=== PATIENT | female | born 1980 | race Caucasian/White ===

== ENCOUNTER 2017-01-02 13:28 | Inpatient (IN) | payer OTHER ==
[~2017-01-02] VITALS: Ht 157.5 cm; Wt 96.8 kg
[~2017-01-02 13:28] MED LIST: CEFAZOLIN 1,000 MG ONE; DEXAMETHASONE 4 MG/ML, 1ML ONE; KETOROLAC 30 MG/1 ML ONE; METOCLOPRAMIDE 5 MG/ML, 2ML ONE; ONDANSETRON 2MG/ML, 2ML ONE; OXYTOCIN 10 UNITS/ML, 1ML ONE
[2017-01-02] MEDS ORDERED: OXYTOCIN 30U/ 0.9% NaCL 500ML 500 ML IV SCH (13:31)
[2017-01-02] MEDS ORDERED: SODIUM CITRATE/CITRIC ACID 30 ML UDC PO ONE (14:00)
[2017-01-02] MEDS: PLEASE ENTER HEIGHT AND WEIGHT MC SCH ×2 (14:00→22:00)
[2017-01-02] MEDS ORDERED: METOCLOPRAMIDE 5 MG/ML, 2ML IV ONE (14:00)
[2017-01-02] MEDS: PLEASE ENTER ALLERGIES MC SCH ×4 (14:00→22:00)
[2017-01-02] MEDS ORDERED: LACTATED RINGERS 1,000 ML IVBOLUS ONE (14:00)
[2017-01-02 14:08] LABS: BLOOD UREA NITROGEN 8 mg/dL (7-18)
[2017-01-02] MEDS ORDERED: SODIUM CITRATE/CITRIC ACID 30 ML UDC ONE (14:09)
[2017-01-02] MEDS ORDERED: METOCLOPRAMIDE 5 MG/ML, 2ML ONE (14:10)
[2017-01-02] MEDS ORDERED: OXYTOCIN 30U/ 0.9% NaCL 500ML 500 ML ONE (14:10)
[2017-01-02 14:11] LABS: ASPARTATE AMINO TRANSFERASE 18 U/L (15-37)
[2017-01-02] MEDS: LACTATED RINGERS 1,000 ML IV SCH ×6 (14:18→22:00)
[2017-01-02] MEDS ORDERED: OXYcodone 5 MG/5 ML ORAL.SOL UDC PO PRN (16:00)
[2017-01-02] MEDS ORDERED: ONDANSETRON 2MG/ML, 2ML IVPush PRN (16:00)
[2017-01-02] MEDS ORDERED: ALBUTEROL SULFATE 2.5 MG/3 ML NPPB PRN (16:00)
[2017-01-02] MEDS ORDERED: MEPERIDINE/PF 25MG/0.5ML IVPush PRN (16:00)
[2017-01-02] MEDS ORDERED: HYDROcodone/APAP 7.5-325MG/15ML UDC PO PRN (16:00)
[2017-01-02] MEDS ORDERED: hydrALAzine 20 MG/ML, 1ML IV PRN (16:00)
[2017-01-02] MEDS ORDERED: PROMETHAZINE 25 MG/ML, 1ML IV PRN (16:00)
[2017-01-02] MEDS ORDERED: EPHEDRINE 50 MG/ML, 1ML IVPush PRN (16:00)
[2017-01-02] MEDS ORDERED: FENTANYL PF 100 MCG/2ML IV PRN (16:00)
[2017-01-02] MEDS ORDERED: HYDROmorphone 1 MG/ML, 1ML IV PRN (16:00)
[2017-01-02] MEDS ORDERED: LABETALOL 5MG/ML, 20ML IV PRN (16:00)
[2017-01-02] MEDS ORDERED: FENTANYL PF 100 MCG/2ML ONE (16:25)
[2017-01-02] MEDS: OXYTOCIN 30U/ 0.9% NaCL 500ML 500 ML IV SCH (18:24)
[2017-01-02] MEDS: IBUPROFEN 600 MG TABLET PO SCH (18:30)
[2017-01-02] MEDS ORDERED: morphine SULFATE 10 MG/ML, 1ML IVPush PRN ×2 (18:30)
[2017-01-02] MEDS ORDERED: OXYcodone IR 5MG TABLET PO PRN (18:30)
[2017-01-02] MEDS ORDERED: BISACODYL 10 MG SUPP PR PRN (18:30)
[2017-01-02] MEDS ORDERED: SIMETHICONE 80 MG CHEW TAB PO PRN (18:30)
[2017-01-02] MEDS: ACETAMINOPHEN 325 MG TABLET PO SCH (18:30)
[2017-01-02] MEDS ORDERED: ONDANSETRON 2MG/ML, 2ML IV PRN (18:30)
[2017-01-02] MEDS ORDERED: CALCIUM CARBONATE 500 MG TAB.CHEW PO PRN (18:30)
[2017-01-02] MEDS ORDERED: MISOPROSTOL 200 MCG TABLET PR PRN (18:30)
[2017-01-02 20:40] VITALS: BP 150/88
[2017-01-03] MEDS: KETOROLAC 30 MG/1 ML IV SCH ×4 (00:08→12:30)
[2017-01-03] MEDS: OXYcodone IR 5MG TABLET PO PRN ×4 (00:08→13:12)
[2017-01-03 00:10] VITALS: BP 132/81
[2017-01-03] MEDS: ACETAMINOPHEN 325 MG TABLET PO SCH ×4 (00:30→19:43)
[2017-01-03] MEDS: IBUPROFEN 600 MG TABLET PO SCH ×4 (00:30→19:43)
[2017-01-03] MEDS: LACTATED RINGERS 1,000 ML IV SCH ×4 (02:24→14:24)
[2017-01-03 04:00] VITALS: BP 117/76
[2017-01-03] MEDS: OXYTOCIN 30U/ 0.9% NaCL 500ML 500 ML IV SCH ×2 (04:24→14:24)
[2017-01-03 08:15] VITALS: BP 102/68
[2017-01-03] MEDS: DOCUSATE 100 MG CAPSULE PO PRN (09:17)
[2017-01-03] MEDS: PRENATAL VIT/IRON/FA 1 EACH TABLET PO SCH (09:17)
[2017-01-03 20:05] VITALS: BP 101/63
[2017-01-04] MEDS: IBUPROFEN 600 MG TABLET PO SCH ×3 (01:24→14:01)
[2017-01-04] MEDS: ACETAMINOPHEN 325 MG TABLET PO SCH ×4 (01:24→19:30)
[2017-01-04] MEDS: DOCUSATE 100 MG CAPSULE PO PRN ×2 (07:33→19:48)
[2017-01-04] MEDS: PRENATAL VIT/IRON/FA 1 EACH TABLET PO SCH (07:33)
[2017-01-04 10:00] VITALS: BP 128/80
[2017-01-04] MEDS: OXYcodone IR 5MG TABLET PO PRN (19:48)
[2017-01-04 20:00] VITALS: BP 121/77
[2017-01-05] MEDS: IBUPROFEN 600 MG TABLET PO SCH ×4 (00:49→15:50)
[2017-01-05] MEDS: ACETAMINOPHEN 325 MG TABLET PO SCH (01:30)
[2017-01-05 06:50] VITALS: BP 115/73
[2017-01-05] MEDS: PRENATAL VIT/IRON/FA 1 EACH TABLET PO SCH (09:05)
[2017-01-05] MEDS: DOCUSATE 100 MG CAPSULE PO PRN (09:05)
[2017-01-05] MEDS ORDERED: OXYC-302 PO (14:52)
[2017-01-05] MEDS ORDERED: IBUP-1222 PO (14:53)
[2017-01-05] MEDS ORDERED: DOCU-30 PO (14:53)
== END 2017-01-05 16:00 | disposition home or self-care (01) | DRG 766 ==
LOC: LDIP 13:28 → 2NW 20:20
PROVIDERS: ADMIT Obstetrics & Gynecology; ATTEND Obstetrics & Gynecology
PROC: 10D00Z1 Extraction of Products of Conception, Low, Open Approach (ICD-10-PCS; principal; 2017-01-02)
DX: O13.4 Gestational [pregnancy-induced] hypertension without significant proteinuria, complicating childbirth (principal); O34.211 Maternal care for low transverse scar from previous cesarean delivery; Z37.0 Single live birth; Z3A.37 37 weeks gestation of pregnancy
CPT/HCPCS: 36415; 80053; 82248; 82570; 84156; 84550; 85025; 86850; 86900; J0690; J1100; J1885; J2405; J3010; J2590; J2765; J7120